=== PATIENT | female | born 1960 | race Caucasian/White ===

== ENCOUNTER → 2016-12-26 | Outpatient (CLI) | payer OTHER ==
[~2016-12-26] MED LIST: ACCUNEB 0.0.63 MG/3 INH; ADVAIR 250/501 EA INH; ALBUTEROL0.09 MG/A2 INH; ALLERGY10 MG; ANTIVERT/2525 M1 PO; ATIVAN0.5 MG PO; ATIVAN1 MG PO; AUGMENTIN 875 M1 TAB PO; AUGMENTIN 875875 MG PO; BIOTIN1000 MCG PO; CEFTIN500 MG PO; DULE1ARO INH; DUONEB 3 MG/3 ML3 ML IH; FLONASE 0.05% 121 EA NAS; FLUTICASON0.05 MG/AC NAS; KEPPRA XR500 MG PO; LEVAQUIN750 MG PO; LEVOFLOXACIN500 MG PO; LIPITOR80 MG PO; LORATADINE10 M1 PO; MUCINEX DM 30 M1 TE1 PO; MULTIVITAMIN FO1 CAP; Motrin,Rufen800 MG PO; NAPROSYN500 MG PO; NICOTINE T14 MG/24 H TD; NICOTINE TRANSD1 TDM TD; NKHM; PEPCID20 MG PO; PHENERGAN25 M3 PO; PREDNICOT10 MG PO; PREDNICOT20 MG PO; PREDNISONE10 MG PO; PROAIR HFA0.09 MG/AC IH; PROAIR HFA0.09 MG/AC INH; SERTRALINE50 MG PO; SYMBICORT1 AE1 INH; VIBRAMYCIN100 MG PO; VICODIN 5/500 505 MG PO; ZITHROMAX Z PA250 MG PO; ZITHROMAX250 MG PO; ZOLOFT50 MG PO
[2016-12-26 08:45] LABS: BASO # 0.1 10*3/uL (0.0-0.1); BASO % 1.2 % (0.0-1.0); EOS # 0.3 10*3/uL (0.0-0.4); EOS % 3.4 % (1.0-4.0); HEMATOCRIT 44.2 % (37.0-47.0); HEMOGLOBIN 14.3 g/dl (12.0-16.0); LYMPH % 36.1 % (27.0-41.0); MEAN CELL VOLUME 91.9 fl (81.0-99.0); MEAN CORPUSCULAR HGB 29.7 pg (27.0-31.0); MEAN CORPUSCULAR HGB CONC 32.4 g/dl (33.0-37.0); MEAN PLATELET VOLUME 9.9 fl (9.6-12.3); MONO # 0.7 10*3/uL (0.1-1.0); MONO % 8.2 % (3.0-9.0); NEUT # 4.2 10*3/uL (2.3-7.9); NEUT % 50.9 % (47.0-73.0); PLATELET COUNT AUTOMATED 277 10*3/uL (130-400); RED BLOOD COUNT 4.81 10*6/uL (4.10-5.10); RED CELL DISTRI WIDTH 14.6 % (0-14.5); WHITE BLOOD COUNT 8.3 10*3/uL (4.8-10.8)
[2016-12-26 09:12] LABS: ALBUMIN 3.8 gm/dl (3.1-4.5); ALKALINE PHOSPHATASE 92 U/L (45-117); BILIRUBIN, TOTAL 0.3 mg/dl (0.2-1.0); BUN 9 mg/dl (7-24); CARBON DIOXIDE 26 mmol/L (21-32); CHLORIDE 108 mmol/L (98-107); CHOLESTEROL 230 mg/dL (<200); EST GLOM FILT AFRICAN AMERICAN > 60 ml/min; GLUCOSE 99 mg/dL (65-99); HDL CHOLESTEROL 51 mg/dl (40-60); LDL CHOLESTEROL 153 mg/dL (9-159); POTASSIUM 4.3 mmol/L (3.5-5.1); SGOT/AST 19 IU/L (3-35); SGPT/ALT 17 U/L (12-78); SODIUM 144 mmol/L (136-145); TOTAL PROTEIN 7.4 gm/dL (6.4-8.2); TRIGLYCERIDES 131 mg/dl (<150); VLDL CHOLESTEROL 26 mg/dL (6-40)
[2016-12-26 09:38] LABS: VITAMIN D, 25-HYDROXY 28.8 ng/mL (30-100)
[2016-12-26 09:39] LABS: FOLIC ACID 19.89 ng/mL (>5.38)
== END | disposition home or self-care (01) ==
LOC: LAB 08:25
PROVIDERS: Nurse Practitioner Family
DX: J44.9 Chronic obstructive pulmonary disease, unspecified (principal); E03.9 Hypothyroidism, unspecified; E78.4 Other hyperlipidemia; R53.81 Other malaise; I10 Essential (primary) hypertension; R06.89 Other abnormalities of breathing; Z87.891 Personal history of nicotine dependence

== ENCOUNTER → 2017-11-03 | Outpatient (CLI) | payer MEDICARE, MEDICAID | END | disposition home or self-care (01) | LOC: MAMMO 14:48 | DX: Z12.31 Encounter for screening mammogram for malignant neoplasm of breast (principal); N63.22 Unspecified lump in the left breast, upper inner quadrant ==

== ENCOUNTER → 2017-11-17 | Day surgery (SDC) | payer MEDICARE, MEDICAID ==
[~2017-11-17] VITALS: Ht 152.4 cm; Wt 68.9 kg
[~2017-11-17] MED LIST changes: +SYNTHROID25 MCG PO; +TOPROL XL25 MG PO
[2017-11-17 08:41] VITALS: BP 109/59
[2017-11-17 09:47] VITALS: BP 107/54
[2017-11-17 10:02] VITALS: BP 117/60
[2017-11-17 10:16] VITALS: BP 124/67
== END | disposition home or self-care (01) ==
LOC: SDC 11-16 15:30
DX: Z12.11 Encounter for screening for malignant neoplasm of colon (principal); D12.0 Benign neoplasm of cecum; I10 Essential (primary) hypertension; J44.9 Chronic obstructive pulmonary disease, unspecified; F41.9 Anxiety disorder, unspecified; F32.9 Major depressive disorder, single episode, unspecified; Z87.891 Personal history of nicotine dependence; Z79.899 Other long term (current) drug therapy; Z88.8 Allergy status to other drugs, medicaments and biological substances; E78.5 Hyperlipidemia, unspecified; I25.10 Atherosclerotic heart disease of native coronary artery without angina pectoris; Z86.010 Personal history of colon polyps; K64.8 Other hemorrhoids; Z90.49 Acquired absence of other specified parts of digestive tract; Z82.49 Family history of ischemic heart disease and other diseases of the circulatory system; K57.30 Diverticulosis of large intestine without perforation or abscess without bleeding

== ENCOUNTER → 2017-12-15 | Outpatient (CLI) | payer MEDICARE, MEDICAID | END | disposition home or self-care (01) | LOC: RAD 13:22 | DX: M20.62 Acquired deformities of toe(s), unspecified, left foot (principal); Z86.73 Personal history of transient ischemic attack (TIA), and cerebral infarction without residual deficits ==

== ENCOUNTER → 2017-12-15 | Outpatient (CLI) | payer MEDICARE, MEDICAID | END | disposition home or self-care (01) | LOC: RAD 10:00 → ORTHO 12-16 02:25 | DX: M20.62 Acquired deformities of toe(s), unspecified, left foot (principal) ==

== ENCOUNTER → 2018-02-12 | Outpatient (CLI) | payer MEDICARE, MEDICAID ==
[2018-02-12 13:25] LABS: BUN 13 mg/dl (7-24); CHLORIDE 106 mmol/L (98-107); CREATININE 0.84 mg/dL (0.55-1.02); POTASSIUM 4.7 mmol/L (3.5-5.1); SODIUM 140 mmol/L (136-145)
== END | disposition home or self-care (01) ==
LOC: LAB 12:39
PROVIDERS: Physician Assistant
DX: M20.62 Acquired deformities of toe(s), unspecified, left foot (principal); R10.9 Unspecified abdominal pain; R06.02 Shortness of breath; R31.9 Hematuria, unspecified; I10 Essential (primary) hypertension; J43.9 Emphysema, unspecified; Z87.891 Personal history of nicotine dependence; Z90.710 Acquired absence of both cervix and uterus; Z90.49 Acquired absence of other specified parts of digestive tract

== ENCOUNTER 2019-02-01 10:35 | Emergency (ER) | payer OTHER, MEDICAID ==
[~2019-02-01] VITALS: Ht 160 cm; Wt 62.1 kg
--- NOTE | ~2019-02-01 | EKG ---
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
[~2019-02-01 10:35] MED LIST changes: +Ipratropium Brom3 ML NEB; +MUCINEX ER600 MG PO; +OMEPRAZOLE MAGN20 MG PO; +RESTORIL7.5 M1 PO; +SYNTHROID,LEV112 MCG PO; +VITAMIN D5000 UNIT PO; +ZOLOFT100 MG PO
[2019-02-01 11:11] LABS: BASO # 0.1 10*3/uL (0.0-0.1); BASO % 0.9 % (0.0-1.0); EOS # 0.4 10*3/uL (0.0-0.4); EOS % 5.9 % (1.0-4.0); HEMATOCRIT 40.8 % (37.0-47.0); HEMOGLOBIN 13.2 g/dl (12.0-16.0); LYMPH # 2.1 10*3/uL (1.3-4.4); LYMPH % 31.9 % (27.0-41.0); MEAN CELL VOLUME 93.2 fl (81.0-99.0); MEAN CORPUSCULAR HGB 30.1 pg (27.0-31.0); MEAN CORPUSCULAR HGB CONC 32.4 g/dl (33.0-37.0); MEAN PLATELET VOLUME 9.4 fl (9.6-12.3); MONO # 0.6 10*3/uL (0.1-1.0); MONO % 8.8 % (3.0-9.0); NEUT # 3.4 10*3/uL (2.3-7.9); NEUT % 52.2 % (47.0-73.0); PLATELET COUNT AUTOMATED 323 10*3/uL (130-400); RED BLOOD COUNT 4.38 10*6/uL (4.10-5.10); RED CELL DISTRI WIDTH 14.1 % (0-14.5); WHITE BLOOD COUNT 6.6 10*3/uL (4.8-10.8)
[2019-02-01 11:20] LABS: INTERNATIONAL NORM RATIO 0.9 (2.0-3.5)
[2019-02-01 11:27] LABS: ALBUMIN 3.5 gm/dl (3.1-4.5); ALKALINE PHOSPHATASE 75 U/L (45-117); BUN 11 mg/dl (7-24); CHLORIDE 106 mmol/L (98-107); CREATININE 0.91 mg/dL (0.55-1.02); SGOT/AST 14 IU/L (3-35); SGPT/ALT 13 U/L (12-78); SODIUM 141 mmol/L (136-145); TOTAL PROTEIN 7.1 gm/dL (6.4-8.2)
[2019-02-01 11:32] LABS: TROPONIN I < 0.015 ng/ml (<0.045)
[2019-02-01] MEDS ORDERED: DELTASONE20 M1 PO (12:26)
[2019-02-01] MEDS ORDERED: VIBRAMYCIN100 MG PO (12:26)
== END 2019-02-01 12:39 | disposition home or self-care (01) ==
LOC: ED 10:35
PROVIDERS: Emergency Medicine
DX: J44.1 Chronic obstructive pulmonary disease with (acute) exacerbation (principal); I10 Essential (primary) hypertension; K21.9 Gastro-esophageal reflux disease without esophagitis; E78.5 Hyperlipidemia, unspecified; E03.9 Hypothyroidism, unspecified; Z91.041 Radiographic dye allergy status; Z88.8 Allergy status to other drugs, medicaments and biological substances; Z88.5 Allergy status to narcotic agent; Z88.2 Allergy status to sulfonamides; Z91.012 Allergy to eggs; Z79.2 Long term (current) use of antibiotics; Z79.899 Other long term (current) drug therapy; Z87.891 Personal history of nicotine dependence; Z90.49 Acquired absence of other specified parts of digestive tract; Z90.710 Acquired absence of both cervix and uterus; Z86.73 Personal history of transient ischemic attack (TIA), and cerebral infarction without residual deficits

== ENCOUNTER 2019-02-25 13:54 | Inpatient (IN) | payer OTHER, MEDICAID ==
[~2019-02-25] VITALS: Ht 152.4 cm; Wt 70.9 kg
--- NOTE | ~2019-02-25 | EKG ---
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
--- NOTE | ~2019-02-25 | EKG ---
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
--- NOTE | ~2019-02-25 | EKG ---
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
[~2019-02-25 13:54] MED LIST changes: +DELTASONE20 M1 PO
[2019-02-25 13:59] VITALS: BP 130/79
[2019-02-25 14:18] LABS: BASO # 0.1 10*3/uL (0.0-0.1); BASO % 1.4 % (0.0-1.0); EOS # 1.1 10*3/uL (0.0-0.4); EOS % 11.9 % (1.0-4.0); HEMATOCRIT 45.3 % (37.0-47.0); HEMOGLOBIN 14.5 g/dl (12.0-16.0); LYMPH # 2.8 10*3/uL (1.3-4.4); LYMPH % 30.9 % (27.0-41.0); MEAN CELL VOLUME 94.4 fl (81.0-99.0); MEAN CORPUSCULAR HGB 30.2 pg (27.0-31.0); MEAN PLATELET VOLUME 9.4 fl (9.6-12.3); MONO # 0.6 10*3/uL (0.1-1.0); MONO % 6.7 % (3.0-9.0); NEUT # 4.5 10*3/uL (2.3-7.9); NEUT % 48.8 % (47.0-73.0); PLATELET COUNT AUTOMATED 297 10*3/uL (130-400); WHITE BLOOD COUNT 9.2 10*3/uL (4.8-10.8)
--- NOTE | 2019-02-25 14:20 | NUR ---
PATIENT STATES THAT SHE RELAPSED SMOKING ABOUT A WEEK AGO AND SMOKED A FEW CIGARETTES
[2019-02-25 14:35] LABS: ALBUMIN 3.8 gm/dl (3.1-4.5); ALKALINE PHOSPHATASE 76 U/L (45-117); BUN 6 mg/dl (7-24); CHLORIDE 107 mmol/L (98-107); CREATININE 0.99 mg/dL (0.55-1.02); POTASSIUM 4.1 mmol/L (3.5-5.1); SGOT/AST 15 IU/L (3-35); SGPT/ALT 18 U/L (12-78); SODIUM 139 mmol/L (136-145); TOTAL PROTEIN 7.5 gm/dL (6.4-8.2)
[2019-02-25 14:38] LABS: TROPONIN I < 0.015 ng/ml (<0.045)
[2019-02-25 14:42] LABS: ACT PARTIAL THROMBO TIME 25.4 SECONDS (20.0-32.1); INTERNATIONAL NORM RATIO 0.9 (2.0-3.5)
[2019-02-25 14:46] VITALS: BP 130/79
[2019-02-25 15:29] VITALS: BP 107/55
[2019-02-25 16:00] VITALS: BP 125/74
--- NOTE | 2019-02-25 16:00 | NUR ---
A 58, admitted to , under the services of SALUD Rodriguez DO with a diagnosis of ACUTE EXACERBATION OF COPD. Chief complaint is SHORTNESS OF BREATH. Patient arrived via bed from ER. Monitor applied. Initial assessment completed. Vital signs taken and recorded. SALUD RODRIGUEZ DO notified of admission to the unit. Orders received. See assessment for past medical history, medications and allergies. Patient and/or family oriented to unit. [facility]. Clothing/patient valuable form completed. AMPARO SALAZAR
[2019-02-25] MEDS ORDERED: PROAIR HFA8.5 GM INH (18:22)
[2019-02-25] MEDS ORDERED: REXULTI1 MG PO (18:23)
[2019-02-25 20:00] VITALS: BP 102/69
--- NOTE | 2019-02-25 21:44 | NUR ---
PT REQUESTING HOME ZOLOFT AT THIS TIME. NOT CURRENTLY ORDERED. CALLED . SAID IT WAS OK TO REORDER HOME DOSE. SEE MAR.
[2019-02-26] VITALS: BP 112/69
[2019-02-26 06:41] LABS: BASO % 0.2 % (0.0-1.0); HEMATOCRIT 40.9 % (37.0-47.0); LYMPH # 1.3 10*3/uL (1.3-4.4); LYMPH % 11.3 % (27.0-41.0); MEAN CELL VOLUME 93.4 fl (81.0-99.0); MEAN CORPUSCULAR HGB 29.7 pg (27.0-31.0); MEAN CORPUSCULAR HGB CONC 31.8 g/dl (33.0-37.0); MEAN PLATELET VOLUME 9.5 fl (9.6-12.3); MONO # 0.3 10*3/uL (0.1-1.0); MONO % 2.7 % (3.0-9.0); NEUT # 9.9 10*3/uL (2.3-7.9); NEUT % 85.4 % (47.0-73.0); PLATELET COUNT AUTOMATED 268 10*3/uL (130-400); RED BLOOD COUNT 4.38 10*6/uL (4.10-5.10); RED CELL DISTRI WIDTH 14.7 % (0-14.5); WHITE BLOOD COUNT 11.5 10*3/uL (4.8-10.8)
[2019-02-26 06:58] LABS: ALBUMIN 3.2 gm/dl (3.1-4.5); BUN 6 mg/dl (7-24); CHLORIDE 110 mmol/L (98-107); POTASSIUM 4.3 mmol/L (3.5-5.1); SODIUM 141 mmol/L (136-145)
[2019-02-26 07:06] LABS: ALKALINE PHOSPHATASE 62 U/L (45-117); CREATININE 0.71 mg/dL (0.55-1.02); FREE T4 0.81 ng/dl (0.76-1.46); PHOSPHOROUS 3.1 mg/dL (2.5-4.9); SGOT/AST 9 IU/L (3-35); SGPT/ALT 17 U/L (12-78); TOTAL PROTEIN 6.4 gm/dL (6.4-8.2)
[2019-02-26 08:12] VITALS: BP 103/50
[2019-02-26 08:27] LABS: VITAMIN D, 25-HYDROXY 31.3 ng/mL (30-100)
--- NOTE | 2019-02-26 09:01 | NUR ---
TYLENOL GIVEN FOR C/O HEADACHE. WILL MONITOR.
--- NOTE | 2019-02-26 10:10 | NUR ---
TYLENOL EFFECTIVE PER PT.
[2019-02-26 11:28] VITALS: BP 121/69
[2019-02-26 15:27] VITALS: BP 126/69
[2019-02-26 20:00] VITALS: BP 141/90
[2019-02-27] VITALS: BP 134/77
[2019-02-27 06:28] LABS: BUN 14 mg/dl (7-24); CHLORIDE 108 mmol/L (98-107); CREATININE 0.94 mg/dL (0.55-1.02); POTASSIUM 4.6 mmol/L (3.5-5.1); SODIUM 140 mmol/L (136-145)
[2019-02-27 06:29] LABS: BASO % 0.1 % (0.0-1.0); HEMOGLOBIN 12.1 g/dl (12.0-16.0); LYMPH # 1.3 10*3/uL (1.3-4.4); LYMPH % 9.8 % (27.0-41.0); MEAN CELL VOLUME 94.3 fl (81.0-99.0); MEAN CORPUSCULAR HGB CONC 31.8 g/dl (33.0-37.0); MONO # 0.5 10*3/uL (0.1-1.0); MONO % 3.7 % (3.0-9.0); NEUT # 11.8 10*3/uL (2.3-7.9); PLATELET COUNT AUTOMATED 289 10*3/uL (130-400); RED BLOOD COUNT 4.03 10*6/uL (4.10-5.10); RED CELL DISTRI WIDTH 14.9 % (0-14.5); WHITE BLOOD COUNT 13.7 10*3/uL (4.8-10.8)
[2019-02-27 08:00] VITALS: BP 123/85
[2019-02-27] MEDS ORDERED: PREDNISONE50 MG PO (10:45)
[2019-02-27] MEDS ORDERED: VIBRAMYCIN100 MG PO (10:45)
[2019-02-27] MEDS ORDERED: Ipratropium Brom3 ML NEB (10:45)
--- NOTE | 2019-02-27 12:37 | NUR ---
Discharge instructions reviewed with patient/family. Patient receptive and verbalizes understanding. Follow-up care arranged. Written instructions given to patient/family. HEPLOCK DISCONTINUED. 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 PT AMBULATORY OFF FLOOR WITH . AMPARO SALAZAR
== END 2019-02-27 12:37 | disposition home or self-care (01) | DRG 871 ==
LOC: ED 13:54 → EDHOLD 15:16 → 4E 15:27
PROVIDERS: Emergency Medicine; Internal Medicine; ADMIT Family Medicine
DX: A41.9 Sepsis, unspecified organism (principal); J18.1 Lobar pneumonia, unspecified organism; J96.11 Chronic respiratory failure with hypoxia; J45.909 Unspecified asthma, uncomplicated; F32.9 Major depressive disorder, single episode, unspecified; J43.9 Emphysema, unspecified; I10 Essential (primary) hypertension; K21.9 Gastro-esophageal reflux disease without esophagitis; E78.5 Hyperlipidemia, unspecified; E03.9 Hypothyroidism, unspecified; E66.9 Obesity, unspecified; F17.210 Nicotine dependence, cigarettes, uncomplicated; Z85.42 Personal history of malignant neoplasm of other parts of uterus; Z86.010 Personal history of colon polyps; Z90.710 Acquired absence of both cervix and uterus; Z90.89 Acquired absence of other organs; Z90.49 Acquired absence of other specified parts of digestive tract; Z98.891 History of uterine scar from previous surgery; Z82.49 Family history of ischemic heart disease and other diseases of the circulatory system; Z83.3 Family history of diabetes mellitus; Z82.0 Family history of epilepsy and other diseases of the nervous system; Z80.8 Family history of malignant neoplasm of other organs or systems; Z86.73 Personal history of transient ischemic attack (TIA), and cerebral infarction without residual deficits; Z99.81 Dependence on supplemental oxygen; Z88.6 Allergy status to analgesic agent; Z88.2 Allergy status to sulfonamides; Z88.8 Allergy status to other drugs, medicaments and biological substances; Z91.041 Radiographic dye allergy status; Z91.012 Allergy to eggs; Z79.899 Other long term (current) drug therapy; Z71.6 Tobacco abuse counseling; Z68.30 Body mass index [BMI] 30.0-30.9, adult

== ENCOUNTER 2019-03-02 09:24 | Emergency (ER) | payer OTHER, MEDICAID ==
--- NOTE | ~2019-03-02 | EKG ---
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
[~2019-03-02 09:24] MED LIST changes: +PREDNISONE50 MG PO; +PROAIR HFA8.5 GM INH; +REXULTI1 MG PO
[2019-03-02 09:39] LABS: BILIRUBIN NEGATIVE (NEGATIVE); BLOOD 2+ (NEGATIVE); CLARITY CLEAR (CLEAR); COLOR YELLOW (YELLOW); GLUCOSE NEGATIVE (NEGATIVE); KETONE NEGATIVE (NEGATIVE); LEUKO ESTERASE NEGATIVE (NEGATIVE); NITRITE NEGATIVE (NEGATIVE); UROBILINOGEN 0.2 E.U./dl (0.2-1.0)
[2019-03-02 09:48] LABS: RBC 16-20 rbc/hpf (0-2); WBC 0-2 wbc/hpf (0-5)
[2019-03-02 09:49] LABS: BACTERIA 1+; MUCOUS TRACE
[2019-03-02 09:57] LABS: BASO % 0.5 % (0.0-1.0); EOS % 0.5 % (1.0-4.0); HEMATOCRIT 45.1 % (37.0-47.0); HEMOGLOBIN 14.9 g/dl (12.0-16.0); LYMPH # 2.6 10*3/uL (1.3-4.4); LYMPH % 30.7 % (27.0-41.0); MEAN CELL VOLUME 90.9 fl (81.0-99.0); MEAN PLATELET VOLUME 9.6 fl (9.6-12.3); MONO # 0.4 10*3/uL (0.1-1.0); MONO % 4.8 % (3.0-9.0); NEUT # 5.3 10*3/uL (2.3-7.9); NEUT % 62.9 % (47.0-73.0); PLATELET COUNT AUTOMATED 292 10*3/uL (130-400); RED BLOOD COUNT 4.96 10*6/uL (4.10-5.10); RED CELL DISTRI WIDTH 15.3 % (0-14.5); WHITE BLOOD COUNT 8.4 10*3/uL (4.8-10.8)
[2019-03-02 10:08] LABS: ACT PARTIAL THROMBO TIME 24.6 SECONDS (20.0-32.1); INTERNATIONAL NORM RATIO 0.9 (2.0-3.5)
[2019-03-02 10:11] LABS: ALBUMIN 3.2 gm/dl (3.1-4.5); ALKALINE PHOSPHATASE 63 U/L (45-117); BUN 16 mg/dl (7-24); CHLORIDE 101 mmol/L (98-107); CREATININE 1.11 mg/dL (0.55-1.02); LIPASE 59 U/L (73-393); POTASSIUM 4.1 mmol/L (3.5-5.1); SGOT/AST 5 IU/L (3-35); SGPT/ALT 13 U/L (12-78); SODIUM 135 mmol/L (136-145); TOTAL PROTEIN 7.1 gm/dL (6.4-8.2)
[2019-03-02 10:25] LABS: TROPONIN I < 0.015 ng/ml (<0.045)
== END 2019-03-02 12:48 | disposition short-term general hospital (02) ==
LOC: ED 09:24
PROVIDERS: Nurse Practitioner Family
DX: A41.9 Sepsis, unspecified organism (principal); K57.20 Diverticulitis of large intestine with perforation and abscess without bleeding; R11.2 Nausea with vomiting, unspecified; J44.9 Chronic obstructive pulmonary disease, unspecified; E03.9 Hypothyroidism, unspecified; F17.210 Nicotine dependence, cigarettes, uncomplicated; Z88.6 Allergy status to analgesic agent; Z88.8 Allergy status to other drugs, medicaments and biological substances; Z88.2 Allergy status to sulfonamides; Z91.012 Allergy to eggs; Z79.899 Other long term (current) drug therapy; Z90.49 Acquired absence of other specified parts of digestive tract; Z90.710 Acquired absence of both cervix and uterus; Z91.041 Radiographic dye allergy status; Z99.81 Dependence on supplemental oxygen; Z86.73 Personal history of transient ischemic attack (TIA), and cerebral infarction without residual deficits

== ENCOUNTER 2019-04-14 11:15 | Emergency (ER) | payer OTHER, MEDICAID ==
[~2019-04-14] VITALS: Ht 152.4 cm; Wt 64.0 kg
[2019-04-14] MEDS ORDERED: CEPHALEXIN500 M1 PO (12:19)
== END 2019-04-14 12:14 | disposition home or self-care (01) ==
LOC: ED 11:15
DX: L53.9 Erythematous condition, unspecified (principal); J44.9 Chronic obstructive pulmonary disease, unspecified; F17.210 Nicotine dependence, cigarettes, uncomplicated; Z48.01 Encounter for change or removal of surgical wound dressing; Z93.3 Colostomy status; Z91.041 Radiographic dye allergy status; Z88.2 Allergy status to sulfonamides; Z91.012 Allergy to eggs; Z88.8 Allergy status to other drugs, medicaments and biological substances; Z88.6 Allergy status to analgesic agent; Z79.899 Other long term (current) drug therapy; Z86.73 Personal history of transient ischemic attack (TIA), and cerebral infarction without residual deficits

== ENCOUNTER 2019-09-30 15:01 | Inpatient (IN) | payer OTHER, MEDICAID ==
[~2019-09-30] VITALS: Ht 152.4 cm; Wt 59.0 kg
[~2019-09-30 15:01] MED LIST changes: +CEPHALEXIN500 M1 PO; -PROAIR HFA8.5 GM INH; +VENT7GM INH
[2019-09-30 15:06] VITALS: BP 163/83
[2019-09-30 15:44] LABS: BASO # 0.1 10*3/uL (0.0-0.1); BASO % 1.3 % (0.0-1.0); EOS # 0.5 10*3/uL (0.0-0.4); EOS % 5.4 % (1.0-4.0); HEMATOCRIT 45.9 % (37.0-47.0); HEMOGLOBIN 14.6 g/dl (12.0-16.0); LYMPH # 3.2 10*3/uL (1.3-4.4); LYMPH % 33.5 % (27.0-41.0); MEAN CELL VOLUME 90.9 fl (81.0-99.0); MEAN CORPUSCULAR HGB 28.9 pg (27.0-31.0); MEAN CORPUSCULAR HGB CONC 31.8 g/dl (33.0-37.0); MONO # 0.8 10*3/uL (0.1-1.0); MONO % 7.8 % (3.0-9.0); NEUT % 51.7 % (47.0-73.0); PLATELET COUNT AUTOMATED 309 10*3/uL (130-400); RED BLOOD COUNT 5.05 10*6/uL (4.10-5.10); RED CELL DISTRI WIDTH 16.8 % (0-14.5); WHITE BLOOD COUNT 9.7 10*3/uL (4.8-10.8)
[2019-09-30 15:53] LABS: ACT PARTIAL THROMBO TIME 26.7 SECONDS (20.0-32.1); INTERNATIONAL NORM RATIO 0.9 (2.0-3.5)
[2019-09-30 16:10] LABS: ALBUMIN 4.1 gm/dl (3.1-4.5); ALKALINE PHOSPHATASE 85 U/L (45-117); BUN 10 mg/dl (7-24); CHLORIDE 110 mmol/L (98-107); CREATININE 0.78 mg/dL (0.55-1.02); POTASSIUM 4.3 mmol/L (3.5-5.1); SGOT/AST 53 IU/L (3-35); SGPT/ALT 63 U/L (12-78); SODIUM 144 mmol/L (136-145); TOTAL PROTEIN 7.2 gm/dL (6.4-8.2)
[2019-09-30 16:12] LABS: TROPONIN I < 0.015 ng/ml (<0.045)
[2019-09-30 18:30] VITALS: BP 159/91
--- NOTE | 2019-09-30 18:30 | NUR ---
A 59, admitted to ICCU, under the services of SALUD Rodriguez DO with a diagnosis of ACUTE RESPIRATORY FAILURE. Chief complaint is SHORTNESS OF BREATH. Patient arrived via stretcher from ER. Monitor applied. Initial assessment completed. Vital signs taken and recorded. SALUD RODRIGUEZ DO notified of admission to the unit. Orders received. See assessment for past medical history, medications and allergies. Patient and/or family oriented to unit. [facility] visitation policy reviewed. Clothing/patient valuable form completed. ANJU BAEZ
[2019-09-30] MEDS ORDERED: METOPROLOL25 MG PO (19:04)
[2019-09-30] MEDS ORDERED: VITAMIN D35000 UNIT PO (19:10)
[2019-09-30 19:36] LABS: ABG BASE EXCESS 1.2 mmol/L (-2.0-2.0); ARTERIAL BLOOD GAS PH 7.35 (7.35-7.45)
--- NOTE | 2019-09-30 19:47 | NUR ---
DR SHAFER NOTIFIED OF CONSULT AND PT CONDITION. ORDERS RECEIVED AND RELAYED TO RESPIRATORY. HE PLACED PT ON BIPAP 15/8 40%. WE ARE TRYING TO OBTAIN ANOTHER IV SITE AT THIS TIME ONE FROM ER WILL NOT FLUSH. AWAITING TO HEAR FROM CT TO SEND PT FOR CT CHEST ALSO.
--- NOTE | 2019-09-30 19:56 | NUR ---
NEW IV SITE PLACED WELL PREVIOUS IV REDRESSED AND IS PATENT.
[2019-09-30 20:00] VITALS: BP 146/89
--- NOTE | 2019-09-30 20:07 | NUR ---
PT REMOVED FROM BIPAP AND PLACED ON NASAL CANNULA SO THAT SHE CAN EAT. DR HOGUE WAS NOTIFIED OF PT COMPLAINTS OF LEG CRAMPS (CHRONIC).
--- NOTE | 2019-09-30 21:38 | NUR ---
DR HOGUE NOTIFIED OF TROPONIN 0.057 AND THAT PT HAS NOT GONE TO CT SCAN YET.
--- NOTE | 2019-09-30 21:54 | NUR ---
PT RESTING IN BED, DENIES DISTRESS. I AGAIN TRIED TO REACH CT SCAN AND ALSO CALLED ER TO LOCATE. WILL CONTINUE TO TRY.
--- NOTE | 2019-09-30 22:33 | NUR ---
PT STATES ROBAXIN RELIEVED LEG CRAMPING. BIPAP IN USAGE. PT TOLERATING WELL.
--- NOTE | 2019-09-30 22:48 | NUR ---
I SPOKE WITH CT DEPT. SCANNER IS STILL DOWN AT THIS TIME.
[2019-10-01] VITALS: BP 125/72
--- NOTE | 2019-10-01 00:34 | NUR ---
PT UTILIZES CALL LIGHT. SHE WANTS BIPAP MASK OFF AND STATES "I DON'T WANNA WEAR THAT ANYMORE TONIGHT". PLACED ON NC4 AND SATS ARE 94%.
--- NOTE | 2019-10-01 00:46 | NUR ---
DR DOSHI NOTIFIED OF TROPONIN 0.066.
--- NOTE | 2019-10-01 03:27 | NUR ---
TOLERATING TITRATION OF NASAL DOWN TO 3L AT 0130. PULSE OX 92-94%.
[2019-10-01 04:00] VITALS: BP 126/72
[2019-10-01 04:44] LABS: HEMATOCRIT 42.4 % (37.0-47.0); HEMOGLOBIN 13.5 g/dl (12.0-16.0); MEAN CELL VOLUME 90.8 fl (81.0-99.0); MEAN CORPUSCULAR HGB 28.9 pg (27.0-31.0); MEAN CORPUSCULAR HGB CONC 31.8 g/dl (33.0-37.0); MEAN PLATELET VOLUME 10.5 fl (9.6-12.3); PLATELET COUNT AUTOMATED 281 10*3/uL (130-400); RED BLOOD COUNT 4.67 10*6/uL (4.10-5.10); RED CELL DISTRI WIDTH 16.8 % (0-14.5); WHITE BLOOD COUNT 10.2 10*3/uL (4.8-10.8)
[2019-10-01 05:04] LABS: BUN 11 mg/dl (7-24); CHLORIDE 107 mmol/L (98-107); CHOLESTEROL 207 mg/dL (<200); CREATININE 0.76 mg/dL (0.55-1.02); PHOSPHOROUS 2.1 mg/dL (2.5-4.9); POTASSIUM 4.3 mmol/L (3.5-5.1); SODIUM 139 mmol/L (136-145); TRIGLYCERIDES 68 mg/dl (<150); VLDL CHOLESTEROL 14 mg/dL (6-40)
[2019-10-01 05:06] LABS: HDL CHOLESTEROL 59 mg/dl (40-60); LDL CHOLESTEROL 134 mg/dL (9-159)
[2019-10-01 05:08] LABS: TOTAL CELLS COUNTED 100 #CELLS
[2019-10-01 05:09] LABS: BURR CELLS FEW; OVALOCYTES FEW; PLATELET SUFFICIENCY NORMAL (NORMAL)
--- NOTE | 2019-10-01 05:13 | NUR ---
SLEEPING. NO DISTRESS. CONTINUOUS PULSE OXIMETRY LOW TO MID 90'S ON NC3.
--- NOTE | 2019-10-01 06:06 | NUR ---
PT CALM, PLEASANT. DENIES COMPLAINTS. COLOSTOMY CHECKED TO FIND NOTHING IN IT....WHICH PT STATES USUAL FOR AM.
[2019-10-01 07:00] LABS: ARTERIAL BLOOD GAS PH 7.321 (7.35-7.45)
[2019-10-01 07:02] LABS: VITAMIN D, 25-HYDROXY 79.3 ng/mL (30-100)
[2019-10-01 08:00] VITALS: BP 136/77
--- NOTE | 2019-10-01 11:37 | NUR ---
BENDRYL FOR SCALP ITCHING PRN BENTLY. ROBAXIN, VISTARIL GIVEN
--- NOTE | 2019-10-01 15:59 | NUR ---
PT WAS INSTRUCTED ON FLUTTER. PT TOLERATED WELL. PT CAN DO ON HER OWN
[2019-10-01 16:00] VITALS: BP 100/50
--- NOTE | 2019-10-01 17:40 | NUR ---
IV started right antecubital with #22 protective cath after 1 attempts. Site prepped with Chloroprep. Sterile dressing applied. Patient tolerated procedure well. IV atb INFUSING PER ORDERS. MEMO THOMAS
--- NOTE | 2019-10-01 17:42 | NUR ---
IV discontinued to left hand. Site asymptomatic. Pressure applied. Sterile dressing applied. MEMO THOMAS
--- NOTE | 2019-10-01 17:48 | NUR ---
DR BHATT NOTIFIED THAT PT HAS INCREASED ANXIETY. PHYSICIAN STATES THAT SHE WILL PUT AN ORDER IN FOR SOMETHING.
[2019-10-01 20:00] VITALS: BP 134/68
--- NOTE | 2019-10-01 21:38 | NUR ---
TYLENOL GIVEN PER PATIENT REQUEST FOR COMPLAINTS OF HEADACHE RATED 6/10. WILL ASSESS EFFECTIVENESS.
--- NOTE | 2019-10-01 22:26 | NUR ---
PATIENT HAS NOT HAD ANY BOWEL IN HER COLOSTOMY FOR 2 DAYS PER PATIENT. LITTLE TO NO BOWEL SOUNDS HEARD WHEN AUSCULTATING. PATIENT STATED SHE IS TENDER IN HER RUQ. NOTIFIED DR ALVAREZ. HE ORDERED A KUB.
--- NOTE | 2019-10-01 22:30 | NUR ---
TYLENOL EFFECTIVE PER PATIENT.
--- NOTE | 2019-10-01 23:07 | NUR ---
PATIENT DOWN FOR KUB BY WHEELCHAIR
[2019-10-02] VITALS: BP 106/54
[2019-10-02 06:27] LABS: BASO % 0.1 % (0.0-1.0); HEMATOCRIT 41.8 % (37.0-47.0); HEMOGLOBIN 13.1 g/dl (12.0-16.0); LYMPH # 1.4 10*3/uL (1.3-4.4); MEAN CELL VOLUME 90.7 fl (81.0-99.0); MEAN CORPUSCULAR HGB 28.4 pg (27.0-31.0); MEAN CORPUSCULAR HGB CONC 31.3 g/dl (33.0-37.0); MEAN PLATELET VOLUME 10.7 fl (9.6-12.3); MONO # 0.6 10*3/uL (0.1-1.0); MONO % 3.6 % (3.0-9.0); NEUT # 15.2 10*3/uL (2.3-7.9); NEUT % 87.8 % (47.0-73.0); PLATELET COUNT AUTOMATED 287 10*3/uL (130-400); RED BLOOD COUNT 4.61 10*6/uL (4.10-5.10); RED CELL DISTRI WIDTH 16.9 % (0-14.5); WHITE BLOOD COUNT 17.3 10*3/uL (4.8-10.8)
[2019-10-02 06:38] LABS: BUN 16 mg/dl (7-24); CHLORIDE 111 mmol/L (98-107); CREATININE 0.82 mg/dL (0.55-1.02); POTASSIUM 4.3 mmol/L (3.5-5.1); SODIUM 141 mmol/L (136-145)
--- NOTE | 2019-10-02 07:05 | NUR ---
ARRIVED ON SHIFT INTRODUCED TO PATIENT, BED IN LOW POSITION, WHEEL LOCKS ENGAGED, BED ALARM ON, SR UP X 2 FOR TURNING AND REPOSITIONING, CALL LIGHT WITIN REACH, NO NEEDS VOICED AT THIS TIME, WHITE BOARD UPDATED.
--- NOTE | 2019-10-02 07:45 | NUR ---
Shift chart check completed.
[2019-10-02 08:00] VITALS: BP 105/63
--- NOTE | 2019-10-02 11:55 | NUR ---
PT WAS TO BE ASSESED FOR HOME O2. PT STATED SHE ALREADY HAS HOME O2 AND IS UNSURE OF THE COMPANY. NO EVAL. NEEDED AT THIS TIME.
[2019-10-02 12:00] VITALS: BP 115/68
--- NOTE | 2019-10-02 12:43 | NUR ---
PER MD REQUEST, PT WAS AMBULATED IN ORDER TO DETERMINE IF ANY TITRATIONS WOULD BE NEEDED IN HER LITER FLOW. PT AMBULATED ON 3L NC AND NEVER DROPPED BELOW 91%. AT THIS TIME 3L IS SUFFICIENT ENOUGH.
[2019-10-02] MEDS ORDERED: METHOCARBAMOL750 M1 PO (13:17)
[2019-10-02] MEDS ORDERED: PREDNISONE10 MG PO (13:17)
[2019-10-02] MEDS ORDERED: LEVAQUIN500 M2 PO (13:17)
--- NOTE | 2019-10-02 14:17 | NUR ---
Discharge instructions reviewed with patient. Patient receptive and verbalizes understanding. Follow-up care arranged. Written instructions given to patient. IV removed, taken out via WC by REGIS SAM
== END 2019-10-02 14:17 | disposition home or self-care (01) | DRG 871 ==
LOC: ED 15:01 → EDHOLD 17:44 → ICCU 18:06 → 5E 10-01 17:02
PROVIDERS: Emergency Medicine; Family Medicine; Internal Medicine; Internal Medicine Critical Care Medicine; ADMIT Family Medicine
PROC: 5A09357 Assistance with Respiratory Ventilation, Less than 24 Consecutive Hours, Continuous Positive Airway Pressure (ICD-10-PCS; principal; 2019-09-30)
PROC: 5A09357 Assistance with Respiratory Ventilation, Less than 24 Consecutive Hours, Continuous Positive Airway Pressure (ICD-10-PCS; 2019-10-01)
DX: A41.9 Sepsis, unspecified organism (principal); J18.9 Pneumonia, unspecified organism; J96.21 Acute and chronic respiratory failure with hypoxia; J96.22 Acute and chronic respiratory failure with hypercapnia; I24.8 Other forms of acute ischemic heart disease; F33.9 Major depressive disorder, recurrent, unspecified; J45.51 Severe persistent asthma with (acute) exacerbation; R65.20 Severe sepsis without septic shock; E87.8 Other disorders of electrolyte and fluid balance, not elsewhere classified; R73.9 Hyperglycemia, unspecified; R74.0 Nonspecific elevation of levels of transaminase and lactic acid dehydrogenase [LDH]; J43.9 Emphysema, unspecified; K21.9 Gastro-esophageal reflux disease without esophagitis; I10 Essential (primary) hypertension; E03.9 Hypothyroidism, unspecified; E78.5 Hyperlipidemia, unspecified; F17.210 Nicotine dependence, cigarettes, uncomplicated; J20.9 Acute bronchitis, unspecified; E83.39 Other disorders of phosphorus metabolism; T38.0X5A Adverse effect of glucocorticoids and synthetic analogues, initial encounter; Y92.89 Other specified places as the place of occurrence of the external cause; Z86.010 Personal history of colon polyps; Z85.42 Personal history of malignant neoplasm of other parts of uterus; Z85.43 Personal history of malignant neoplasm of ovary; Z90.710 Acquired absence of both cervix and uterus; Z90.49 Acquired absence of other specified parts of digestive tract; Z98.891 History of uterine scar from previous surgery; Z82.49 Family history of ischemic heart disease and other diseases of the circulatory system; Z82.0 Family history of epilepsy and other diseases of the nervous system; Z88.5 Allergy status to narcotic agent; Z88.2 Allergy status to sulfonamides; Z88.8 Allergy status to other drugs, medicaments and biological substances; Z88.4 Allergy status to anesthetic agent; Z91.041 Radiographic dye allergy status; Z91.012 Allergy to eggs; Z79.899 Other long term (current) drug therapy; Z86.73 Personal history of transient ischemic attack (TIA), and cerebral infarction without residual deficits; Z92.21 Personal history of antineoplastic chemotherapy; Z92.3 Personal history of irradiation; Z85.828 Personal history of other malignant neoplasm of skin